=== PATIENT | female | born 1955 | race Asian ===

== ENCOUNTER 2023-10-07 13:11 | Emergency (ER) | payer MEDICARE ==
[~2023-10-07] VITALS: Ht 149.9 cm; Wt 50.0 kg
[2023-10-07] MEDS: LIDOCAINE 1% 10 ML VIAL ID ONE (16:14)
[2023-10-07] MEDS: SODIUM CHLORIDE 0.9% 250 ML IRRIG SOLUTION BOTTLE IRRIG ONE (16:14)
[2023-10-07] MEDS: PERTUSS(ACELL),DIPH,TET/PF 0.5 ML SYRINGE [ADULT] IM. ONE (16:14)
[2023-10-07] MEDS: TraMADol HCL 50 MG TABLET PO ONE (16:14)
[2023-10-07 20:51] VITALS: TEMP 98.1
[2023-10-07] MEDS ORDERED: IBUP-1492 PO (20:52)
[2023-10-07 21:35] VITALS: BP 142/82; PULSE 82; RESP 18
== END 2023-10-07 21:41 | disposition home or self-care (01) ==
LOC: EMS 13:11
DX: S52.501A Unspecified fracture of the lower end of right radius, initial encounter for closed fracture (principal); S01.81XA Laceration without foreign body of other part of head, initial encounter; S40.012A Contusion of left shoulder, initial encounter; S80.212A Abrasion, left knee, initial encounter; E11.9 Type 2 diabetes mellitus without complications; Z88.0 Allergy status to penicillin; W01.0XXA Fall on same level from slipping, tripping and stumbling without subsequent striking against object, initial encounter; Y93.89 Activity, other specified; Y92.89 Other specified places as the place of occurrence of the external cause; Y99.8 Other external cause status
CPT/HCPCS: 99284; 73030; 73110; 82962; 90715; 90471; 12013; 29125; J3490